=== PATIENT | female | born 1955 | race Caucasian/White ===

== ENCOUNTER 2020-01-25 13:08 | Emergency (ER) | payer BC, OTHER ==
[~2020-01-25] VITALS: Ht 167.6 cm; Wt 68.0 kg
[~2020-01-25 13:08] MED LIST: ACIPHEX 20 MG T20 MG PO; ASPIR 8181 MG PO; COZAAR 25 MG TA25 M1 PO; CYMBALTA20 MG PO; DEPLIN-ALGAL O1 EACH PO; ESTRADIOL 1 MG T1 M1 PO; FLEXERIL PO; GABAPENTIN 100100 MG; KEFLEX500 MG PO; MAGOX 400400 MG PO; NEURONTIN600 MG PO; PROTONIX 20 MG20 M1 PO; RISPERDAL0.25 MG PO; WELLBUTRIN 75 M75 M1; WELLBUTRIN 75 M75 M1 PO; WELLBUTRIN XL300 MG PO
[2020-01-25 14:42] LABS: ABSOLUTE NEUTROPHILS 1.6 thou/uL (1.4-8.2); BASOPHILS 0.5 % (0.0-2.0); EOSINOPHILS 1.8 % (0.0-3.0); HEMATOCRIT 39.9 % (37.0-47.0); HEMOGLOBIN 13.5 gm/dL (12.0-15.0); LYMPHOCYTES 47.1 % (24.0-44.0); MCH 30.6 pg (26.0-34.0); MCHC 33.8 g/dL (28.0-37.0); MCV 90.6 fL (80.0-100.0); MONOCYTES 11.6 % (1.0-8.0); PLATELET COUNT 175 thou/uL (150-400); RDW 13.2 % (10.5-14.5)
[2020-01-25 14:45] LABS: CALCIUM 8.4 mg/dL (8.5-10.1); CREATININE 0.9 mg/dL (0.6-1.0); POTASSIUM 3.4 mmol/L (3.5-5.1)
[2020-01-25 14:53] LABS: ALBUMIN 3.7 g/dL (3.4-5.0); TOTAL BILIRUBIN 0.3 mg/dL (0.2-1.0); TOTAL PROTEIN 6.7 g/dL (6.4-8.2)
[2020-01-25 15:00] LABS: APTT 27.1 Seconds (24.5-32.8); PROTIME 9.5 Seconds (9.3-11.4)
[2020-01-25 16:04] VITALS: BP 147/78
[2020-01-25] MEDS ORDERED: TESSALON PERLE100 MG PO (16:07)
[2020-01-25] MEDS ORDERED: PREDNISONE 20 M20 MG PO (16:07)
[2020-01-25] MEDS ORDERED: ZPAK PO (16:07)
[2020-01-25] MEDS ORDERED: VENTOLIN HFA 1818 GM INH (16:07)
--- NOTE | 2020-01-26 07:41 | EKG ---
[facility] [place] [address] ELECTROCARDIOGRAM REPORT Name: HOUSTON RAY Room #: [facility]#: [id number] Admission: 01/25/20 Attend Phys: Discharge: 01/25/20 Date of : 57 Report #: [id number] THIS REPORT FOR: cc: FAM - Family physician unknown FAM - Family physician unknown Uvaldo Mccray MD [facility] THIS REPORT FOR: //name// [facility] ED Test Date: 2020-01-25 Test Time: 15:27:23 Pat Name: HOUSTON RAY Department: Room: Gender: Research Electrician: [facility] : 1955 Requested By: Sharon iKncaid Order Number: [id number] MD: Uvaldo Mccray Measurements Intervals [place] Rate: 69 P: 52 CA: 143 QRS: -15 QRSD: 101 T: 51 QT: 462 QTc: 495 Interpretive Statements Sinus rhythm Poor R wave progression Nonspecific ST and T wave abnormality Borderline prolonged QT interval Compared to ECG 03/23/2015 04:14:52 QT interval has lengthened Electronically Signed On 01-26-2020 7:41:01 CDT by Uvaldo Mccray [email or web address] <ELECTRONICALLY SIGNED> By: Uvaldo Mccray MD, FACC 01/26/20 0741 1527 1527 Uvaldo Mccray MD, [facility] /EPI
== END 2020-01-25 16:05 | disposition home or self-care (01) ==
LOC: ER 13:08
PROVIDERS: Physician Assistant
DX: U07.1 COVID-19 (principal); R06.00 Dyspnea, unspecified; J18.9 Pneumonia, unspecified organism; I10 Essential (primary) hypertension; E78.5 Hyperlipidemia, unspecified; K21.9 Gastro-esophageal reflux disease without esophagitis; G89.29 Other chronic pain; M54.5 Low back pain; Z79.899 Other long term (current) drug therapy; Z88.5 Allergy status to narcotic agent; Z88.8 Allergy status to other drugs, medicaments and biological substances

== ENCOUNTER 2020-02-10 15:57 | Inpatient (IN) | payer BC, OTHER ==
[~2020-02-10] VITALS: Ht 162.6 cm; Wt 94.3 kg
[~2020-02-10 15:57] MED LIST changes: +PREDNISONE 20 M20 MG PO; +TESSALON PERLE100 MG PO; +VENTOLIN HFA 1818 GM INH; +ZPAK PO
[2020-02-10 16:07] VITALS: BP 139/96
[2020-02-10] MEDS ORDERED: BUSPIRONE HCL10 MG PO (16:30)
[2020-02-10] MEDS ORDERED: OMEPRAZOLE40 MG PO (16:31)
[2020-02-10] MEDS ORDERED: PREGABALIN50 MG PO (16:31)
[2020-02-10] MEDS ORDERED: TRAZODONE HCL100 MG PO (16:31)
[2020-02-10] MEDS ORDERED: LYRICA100 MG PO (16:32)
[2020-02-10] MEDS ORDERED: ROSUVASTATIN CA20 MG PO (16:32)
[2020-02-10] MEDS ORDERED: TOPAMAX 100 MG100 MG PO (16:33)
[2020-02-10] MEDS ORDERED: OXYBUTYNIN 5 MG5 M2 PO (16:33)
[2020-02-10] MEDS ORDERED: DULOXETINE HCL60 MG PO (16:35)
[2020-02-10 17:05] LABS: ABSOLUTE NEUTROPHILS 3.9 thou/uL (1.4-8.2); BASOPHILS 0.9 % (0.0-2.0); EOSINOPHILS 1.7 % (0.0-3.0); HEMATOCRIT 37.8 % (37.0-47.0); HEMOGLOBIN 12.8 gm/dL (12.0-15.0); MCH 30.8 pg (26.0-34.0); MCHC 33.8 g/dL (28.0-37.0); MCV 91.2 fL (80.0-100.0); MONOCYTES 8.7 % (1.0-8.0); PLATELET COUNT 230 thou/uL (150-400); POLYS 52.7 % (36.0-66.0); RBC 4.14 mil/uL (4.20-5.00); RDW 13.6 % (10.5-14.5); WBC 7.4 thou/uL (4.0-11.0)
[2020-02-10 17:24] LABS: ANION GAP 9 mmol/L (7-16); BUN 10 mg/dL (7-18); CALCIUM 8.7 mg/dL (8.5-10.1); CHLORIDE 108 mmol/L (98-107); CO2 25 mmol/L (21-32); CREATININE 0.9 mg/dL (0.6-1.0); GLUCOSE 157 mg/dL (74-106); POTASSIUM 3.3 mmol/L (3.5-5.1); SODIUM 142 mmol/L (136-145); TROPONIN-I <0.06 ng/mL (<0.06)
[2020-02-11 05:29] LABS: HEMATOCRIT 37.8 % (37.0-47.0); HEMOGLOBIN 12.7 gm/dL (12.0-15.0); MCH 30.8 pg (26.0-34.0); MCHC 33.5 g/dL (28.0-37.0); MCV 91.8 fL (80.0-100.0); RBC 4.12 mil/uL (4.20-5.00); RDW 13.5 % (10.5-14.5); WBC 6.6 thou/uL (4.0-11.0)
[2020-02-11 05:57] LABS: CALCIUM 8.7 mg/dL (8.5-10.1); CREATININE 0.8 mg/dL (0.6-1.0); POTASSIUM 4.2 mmol/L (3.5-5.1)
--- NOTE | 2020-02-11 09:12 | EKG ---
[facility] [place] [address] ELECTROCARDIOGRAM REPORT Name: HOUSTON RAY Room #: 170-14 ADM IN M.R.#: [id number] Admission: 02/10/20 Attend Phys: Hardeep Negron MD Discharge: Date of : 57 Report #: [id number] THIS REPORT FOR: cc: SCOTT - Silvia family physician/PCP SCOTT - No family physician/PCP Uvaldo Mccray MD [facility] THIS REPORT FOR: //name// [facility] ED Test Date: 2020-02-10 Test Time: 17:21:07 Pat Name: HOUSTON RAY Department: Room: 170 Gender: F Disability Counselor: CHARLIE : 1955 Requested By: Cammie Jones Order Number: [id number] MD: Uvaldo Mccray Measurements Intervals [place] Rate: 101 P: 58 MN: 141 QRS: -11 QRSD: 89 T: 108 QT: 321 QTc: 416 Interpretive Statements Sinus tachycardia Poor R wave progression Borderline repolarization abnormality Compared to ECG 01/25/2020 15:27:23 No significant change was found Electronically Signed On 02-11-2020 9:12:10 CDT by Uvaldo Mccray [email or web address] <ELECTRONICALLY SIGNED> By: Uvaldo Mccray MD, [facility] 02/11/20 0912 1721 1721 Uvaldo Mccray MD, [facility] /EPI
[2020-02-11 16:26] VITALS: BP 139/70
[2020-02-11 18:24] VITALS: BP 148/77
--- NOTE | 2020-02-11 18:40 | NUR ---
PT CARE ASSUMED APPROX 1814. PT ALERT AND ORIENTED X4. VSS. REPORTED HEADACHE. MEDICATED PER POC. BS WNL. EATING DINNER DENYING ANY NEEDS OR ISSUES AT THIS TIME. NO DISTRESS NOTED.
[2020-02-11 20:34] VITALS: BP 120/76
--- NOTE | 2020-02-12 02:00 | NUR ---
PT AOX4. PT DENIES PAIN AT TIME OF ASSESSMENT, REPORTS INTERMITTENT OCCURENCE OF HEADACHE WITH COUGHING. PAIN NOTED TO WORSEN WITH LIGHTING, LIGHTS DIMMED. PT RECEIVING PRN PO APAP Q6HR. PT REPORTS SOB WITH EXERTION, REMAINS ON RA. PT AMBULATING TO BATHROOM WITH STANDBY ASSIST, GAIT STEADY WITHOUT WALKER OR CANE. PT REPORTS SHE USES CANE OR WALKER AT HOME WHEN SHE HAS BACK ISSUES. PT NOTED TO HAVE FATIGUE AND WEAKNESS WITH EXERTION. PT TOLERATING PO INTAKE OF FLUIDS. FREQUENT REPOSITIONING ENCOURAGED. PT NOTED TO SHIFT INDEPENDENTLY WHILE IN BED. ENCOURAGED PT TO NOTIFY STAFF FOR ALL NEEDS. CALL LIGHT WITHIN REACH, BED ALARM ON, BED IN LOWEST POSITION, WILL CONTINUE TO MONITOR
[2020-02-12 03:06] LABS: GLYCOHEMOGLOBIN (HGB A1C) 5.7 % (4.8-5.6)
[2020-02-12 08:30] VITALS: BP 141/78
[2020-02-12 12:12] VITALS: BP 18/83
[2020-02-12 15:59] VITALS: BP 142/90
--- NOTE | 2020-02-12 19:06 | NUR ---
Assumed pt care at 7am.Pt in bed alert and oriented x4.Assessment completed. .vss.Pt tolerated meds and diet,Took shower later this shift and complete bed change done.Dr Negron here,order noted.Pt c/o headache and tylenol po given with relief.Pt in bed resting without c/o.Report off to lilian noble.
[2020-02-12 20:42] VITALS: BP 162/79
[2020-02-13 05:37] VITALS: BP 151/85
--- NOTE | 2020-02-13 06:00 | NUR ---
Pt. rested quietly at intervals during the night when checked on during frequent rounds. She did c/o acid reflux and order received for tums (see cpoe). Tume given with relief. Up to the bathroom with stand by assistance. Pt. has been running bradycardia, but has had no complaints of any heart issues or feeling bad.
[2020-02-13 07:54] VITALS: BP 145/63
[2020-02-13] MEDS ORDERED: PREDNISONE 10 M10 MG PO (11:27)
[2020-02-13] MEDS ORDERED: PROVENTIL HFA6.7 G1 INH (11:39)
[2020-02-13 11:49] VITALS: BP 131/66
[2020-02-13 12:32] VITALS: BP 131/66
--- NOTE | 2020-02-13 13:36 | NUR ---
ASSUMED CARE OF PT AT 0700. PT IS A&OX4, VITAL SIGNS STABLE. ORDERS FOR DISCHARGE TODAY. REVIEWED D/C INSTRUCTIONS, MEDICAITONS, AND EDUCATION WITH PT, DENIES QUESTIONS OR CONCERNS. IV REMOVED. SIGNED DISCHARGE PAPERWORK. PT REMOVED BELONGING FROM ROOM AT TIME OF DISCHARGE. PT ASSISTED TO ED BY RISK MODELER.
== END 2020-02-13 13:08 | disposition home or self-care (01) | DRG 178 ==
LOC: ER 15:57 → 3W 21:02 → EROBS 21:02 → 3W 02-11 18:13
PROVIDERS: Nurse Practitioner; Nurse Practitioner Family; ADMIT Hospitalist; ATTEND Hospitalist
DX: U07.1 COVID-19 (principal); J21.9 Acute bronchiolitis, unspecified; I10 Essential (primary) hypertension; E78.5 Hyperlipidemia, unspecified; K21.9 Gastro-esophageal reflux disease without esophagitis; F32.9 Major depressive disorder, single episode, unspecified; E87.6 Hypokalemia; G89.29 Other chronic pain; M54.5 Low back pain; F41.9 Anxiety disorder, unspecified; J40 Bronchitis, not specified as acute or chronic; Z90.711 Acquired absence of uterus with remaining cervical stump; Z86.711 Personal history of pulmonary embolism; Z87.01 Personal history of pneumonia (recurrent); Z79.899 Other long term (current) drug therapy; Z88.5 Allergy status to narcotic agent; Z88.8 Allergy status to other drugs, medicaments and biological substances
CPT/HCPCS: 10879

== ENCOUNTER → 2020-02-23 | Outpatient (CLI) | payer BC, OTHER ==
[~2020-02-23] MED LIST changes: +BUSPIRONE HCL10 MG PO; +DULOXETINE HCL60 MG PO; +LYRICA100 MG PO; +OMEPRAZOLE40 MG PO; +OXYBUTYNIN 5 MG5 M2 PO; +PREDNISONE 10 M10 MG PO; +PREGABALIN50 MG PO; +PROVENTIL HFA6.7 G1 INH; +ROSUVASTATIN CA20 MG PO; +TOPAMAX 100 MG100 MG PO; +TRAZODONE HCL100 MG PO
== END ==
LOC: LAB 08:25
PROVIDERS: ATTEND Pediatrics
DX: U07.1 COVID-19 (principal)

== ENCOUNTER → 2020-04-03 | Outpatient (CLI) | payer BC, OTHER | LOC: LAB 03-31 11:45 | PROVIDERS: ATTEND Pediatrics | DX: Z20.828 Contact with and (suspected) exposure to other viral communicable diseases (principal) ==

== ENCOUNTER → 2020-04-10 | Outpatient (CLI) | payer BC, OTHER | LOC: RAD 10:27 | PROVIDERS: ATTEND Pediatrics | DX: I51.7 Cardiomegaly (principal) ==